=== PATIENT | female | born 1935 | race Caucasian/White ===

== ENCOUNTER 2017-07-04 23:20 | Emergency (ER) | payer MEDICARE, MEDICAID ==
[2017-07-05 00:19] LABS: BASOPHILS 0.4 % (0-2); EOSINOPHILS 6.8 % (0-7); HEMOGLOBIN 12.9 g/dL (12-16); IMMATURE GRANULOCYTES 0.4 % (0-5); LYMPHOCYTES 21.4 % (15-50); MCH 30.9 pg (26.0-34.0); MCHC 33.1 g/dL (31.0-37.0); MCV 93.5 fL (80.0-100.0); MONOCYTES 12.3 % (2-11); NEUTROPHILS 58.7 % (40-80); PLATELET COUNT 206 10x3/uL (130-400); RBC 4.17 10x6/uL (4.00-5.40); RDW 13.9 % (11.5-14.5); WBC 8.2 10x3/uL (4.8-10.8)
[2017-07-05 01:08] LABS: ALBUMIN 3.1 g/dL (3.4-5.0); ANION GAP 17.8 mmol/L (8-16); BILIRUBIN - TOTAL 0.2 mg/dL (0.2-1.3); CARBON DIOXIDE 20.2 mmol/L (21.0-32.0)
== END 2017-07-05 02:00 | disposition home or self-care (01) ==
LOC: D.ER 23:20
PROVIDERS: Emergency Medicine
DX: I10 Essential (primary) hypertension (principal); G20 Parkinson's disease; F17.200 Nicotine dependence, unspecified, uncomplicated

== ENCOUNTER 2017-09-12 09:22 | Emergency (ER) | payer MEDICARE, MEDICAID | END 2017-09-12 11:29 | disposition home or self-care (01) | LOC: D.ER 09:22 | DX: R51 Headache (principal); H92.02 Otalgia, left ear; I10 Essential (primary) hypertension; G20 Parkinson's disease ==

== ENCOUNTER 2017-11-16 21:00 | Inpatient (IN) | payer MEDICARE, MEDICAID ==
[~2017-11-16] VITALS: Ht 157.5 cm; Wt 68.4 kg
[2017-11-16 22:43] LABS: BASOPHILS 0.5 % (0-2); EOSINOPHILS 5.7 % (0-7); HEMATOCRIT 34.3 % (36.0-48.0); HEMOGLOBIN 11.1 g/dL (12-16); LYMPHOCYTES 26.8 % (15-50); MCH 30.8 pg (26.0-34.0); MCHC 32.4 g/dL (31.0-37.0); MCV 95.3 fL (80.0-100.0); PLATELET COUNT 167 10x3/uL (130-400); RDW 14.9 % (11.5-14.5); WBC 6.5 10x3/uL (4.8-10.8)
[2017-11-16 22:45] LABS: APPEARANCE HAZY (CLEAR); BILIRUBIN NEGATIVE (NEGATIVE); COLOR YELLOW (YELLOW); GLUCOSE NEGATIVE (NEGATIVE); KETONE SMALL mg/dL (NEGATIVE); NITRITE NEGATIVE (NEGATIVE); PROTEIN NEGATIVE (NEGATIVE); SPECIFIC GRAVITY 1.015 (1.005-1.020); UROBILINOGEN NORMAL (NORMAL)
[2017-11-16 22:46] LABS: BACTERIA FEW /hpf (NONE SEEN); EPITHELIAL CELLS RARE /hpf (0-5); RED CELLS - URINE RARE /hpf (0-5)
[2017-11-16 23:03] LABS: ALBUMIN 3.2 g/dL (3.4-5.0); ALKALINE PHOSPHATASE 198 U/L (46-116); ALT (SGPT) 10 U/L (10-68); BILIRUBIN - TOTAL 0.32 mg/dL (0.2-1.3); CALC OSMOLALITY 294 mosm/kg (275-300); CALCIUM 8.5 mg/dL (8.5-10.1); CARBON DIOXIDE 18.8 mmol/L (21.0-32.0); CHLORIDE - SERUM 111 mmol/L (98-107); CREATININE - SERUM 3.3 mg/dL (0.6-1.3); GLUCOSE 93 mg/dL (74-106); PROTEIN - SERUM 6.9 g/dL (6.4-8.2); SODIUM 144 mmol/L (136-145); UREA NITROGEN 36 mg/dL (7-18); eGFR NON AFRICAN AMERICAN 14 mL/min (90-120)
[2017-11-16 23:17] LABS: CKMB 0.5 U/L (0.0-3.6); CREATINE KINASE 36 UL (21-215)
[2017-11-16 23:21] LABS: TROPONIN-I < 0.017 ng/mL (0.000-0.060)
[2017-11-17 06:25] LABS: ANION GAP 14.1 mmol/L (8-16); CALCIUM 8.8 mg/dL (8.5-10.1); CARBON DIOXIDE 17.9 mmol/L (21.0-32.0); CREATININE - SERUM 3.1 mg/dL (0.6-1.3); MAGNESIUM - SERUM 2.1 mg/dL (1.8-2.4); PHOSPHOROUS 4.2 mg/dL (2.5-4.9)
[2017-11-17 06:32] LABS: BASOPHILS 0.3 % (0-2); EOSINOPHILS 7.2 % (0-7); HEMATOCRIT 35.5 % (36.0-48.0); HEMOGLOBIN 11.5 g/dL (12-16); IMMATURE GRANULOCYTES 0.3 % (0-5); LYMPHOCYTES 24.4 % (15-50); MCH 30.7 pg (26.0-34.0); MCHC 32.4 g/dL (31.0-37.0); MCV 94.7 fL (80.0-100.0); MEAN PLATELET VOLUME 10.9 fL (7.4-10.4); MONOCYTES 10.4 % (2-11); NEUTROPHILS 57.4 % (40-80); PLATELET COUNT 165 10x3/uL (130-400); RBC 3.75 10x6/uL (4.00-5.40); RDW 14.8 % (11.5-14.5); WBC 6.9 10x3/uL (4.8-10.8)
[2017-11-17] MEDS ORDERED: ZOCOR40 MG PO (10:39)
[2017-11-17] MEDS ORDERED: PLAVIX75 MG PO (10:40)
[2017-11-17] MEDS ORDERED: SINEMET 25-1001 EACH PO (10:41)
[2017-11-17] MEDS ORDERED: ATIVAN2 MG PO (10:42)
[2017-11-17] MEDS ORDERED: NORVASC10 MG PO (10:43)
[2017-11-17] MEDS ORDERED: BYSTOLIC5 MG PO (10:43)
[2017-11-17] MEDS ORDERED: AZILECT0.5 MG PO (10:44)
[2017-11-17] MEDS ORDERED: ACETAMINOPHEN325 MG PO (10:45)
[2017-11-17 11:28] VITALS: BP 175/61
[2017-11-17 12:49] VITALS: BP 170/61; BMI 211.3
[2017-11-17 15:45] VITALS: BP 144/55
[2017-11-17 15:55] LABS: ERYTHROCYTE SEDIMENTATION RATE 18 mm/hr (0-30)
[2017-11-17 19:00] VITALS: BP 152/52
[2017-11-17 20:53] LABS: CREATININE - URINE 74.8 mg/dL (30-125); PRO/CRE RATIO URINE 0.4 mg/g; PROTEIN - URINE 27.8 mg/dL (0.0-11.9)
[2017-11-17 21:16] LABS: APPEARANCE CLEAR (CLEAR); BACTERIA FEW /hpf (NONE SEEN); BILIRUBIN NEGATIVE (NEGATIVE); COLOR YELLOW (YELLOW); GLUCOSE NEGATIVE (NEGATIVE); KETONE NEGATIVE (NEGATIVE); NITRITE NEGATIVE (NEGATIVE); PROTEIN NEGATIVE (NEGATIVE); RED CELLS - URINE OCC /hpf (0-5); SPECIFIC GRAVITY 1.015 (1.005-1.020); UROBILINOGEN NORMAL (NORMAL); WHITE CELLS - URINE 0-5 /hpf (0-5)
[2017-11-18] VITALS: BP 175/53
[2017-11-18 04:00] VITALS: BP 149/44
[2017-11-18 06:44] LABS: BASOPHILS 0.3 % (0-2); EOSINOPHILS 5.1 % (0-7); HEMATOCRIT 33.4 % (36.0-48.0); LYMPHOCYTES 22.3 % (15-50); MCH 30.4 pg (26.0-34.0); MCHC 32.9 g/dL (31.0-37.0); MEAN PLATELET VOLUME 10.8 fL (7.4-10.4); MONOCYTES 10.7 % (2-11); NEUTROPHILS 61.6 % (40-80); PLATELET COUNT 160 10x3/uL (130-400); RBC 3.62 10x6/uL (4.00-5.40); RDW 14.5 % (11.5-14.5); WBC 6.3 10x3/uL (4.8-10.8)
[2017-11-18 06:47] LABS: MCV 92.3 fL (80.0-100.0)
[2017-11-18 07:09] LABS: ALBUMIN 2.9 g/dL (3.4-5.0); ANION GAP 12.3 mmol/L (8-16); BILIRUBIN - TOTAL 0.5 mg/dL (0.2-1.3); CALCIUM 8.5 mg/dL (8.5-10.1); CARBON DIOXIDE 21.3 mmol/L (21.0-32.0); CREATININE - SERUM 2.9 mg/dL (0.6-1.3); POTASSIUM - SERUM 3.6 mmol/L (3.5-5.1); PROTEIN - SERUM 6.5 g/dL (6.4-8.2)
[2017-11-18 08:21] VITALS: BP 112/58
[2017-11-18 13:08] VITALS: Ht 157.5 cm; Wt 68.4 kg
[2017-11-18 13:17] LABS: SPE - A/G RATIO 1.2 (0.7-1.7); SPE - ALBUMIN 3.5 g/dL (2.9-4.4); SPE - ALPHA-1 GLOBULIN 0.3 g/dL (0.0-0.4); SPE - ALPHA-2 GLOBULIN 0.9 g/dL (0.4-1.0); SPE - BETA GLOBULIN 0.9 g/dL (0.7-1.3); SPE - GAMMA GLOBULIN 0.9 g/dL (0.4-1.8); SPE - M-SPIKE Not Observed g/dL (Not Observed); SPE - TOTAL PROTEIN 6.5 g/dL (6.0-8.5)
[2017-11-18 13:51] VITALS: BP 158/56
[2017-11-18 17:01] VITALS: BP 173/61
[2017-11-18 20:00] VITALS: BP 153/53
[2017-11-19] VITALS: BP 153/46
[2017-11-19 04:00] VITALS: BP 154/47
[2017-11-19 05:55] LABS: BASOPHILS 0.5 % (0-2); EOSINOPHILS 6.3 % (0-7); HEMATOCRIT 33.4 % (36.0-48.0); HEMOGLOBIN 11.1 g/dL (12-16); IMMATURE GRANULOCYTES 0.2 % (0-5); LYMPHOCYTES 21.2 % (15-50); MCH 30.6 pg (26.0-34.0); MCHC 33.2 g/dL (31.0-37.0); MEAN PLATELET VOLUME 10.9 fL (7.4-10.4); MONOCYTES 12.6 % (2-11); NEUTROPHILS 59.2 % (40-80); PLATELET COUNT 159 10x3/uL (130-400); RBC 3.63 10x6/uL (4.00-5.40); RDW 14.4 % (11.5-14.5); WBC 5.9 10x3/uL (4.8-10.8)
[2017-11-19 06:22] LABS: ALBUMIN 2.9 g/dL (3.4-5.0); ANION GAP 13.5 mmol/L (8-16); CALCIUM 8.4 mg/dL (8.5-10.1); CREATININE - SERUM 2.6 mg/dL (0.6-1.3); POTASSIUM - SERUM 3.2 mmol/L (3.5-5.1)
[2017-11-19 06:24] LABS: CARBON DIOXIDE 26.7 mmol/L (21.0-32.0)
[2017-11-19 06:36] LABS: BILIRUBIN - TOTAL 0.63 mg/dL (0.2-1.3); PROTEIN - SERUM 6.4 g/dL (6.4-8.2)
[2017-11-19 10:15] VITALS: BP 163/61
[2017-11-19 12:31] VITALS: BP 161/57
[2017-11-19 14:27] LABS: UPE RAND - ALBUMIN 16.4 % (()); UPE RAND - ALPHA 1 GLOBULIN 9.6 % (()); UPE RAND - ALPHA 2 GLOBULIN 21.5 % (()); UPE RAND - BETA GLOBULIN 6.3 % (()); UPE RAND - GAMMA GLOBULIN 46.3 % (())
[2017-11-22 16:12] LABS: RENIN ACTIVITY - PLASMA <0.167 ng/mL/hr (0.167-5.380)
[2017-11-24 09:10] LABS: ALDOSTERONE <1.0 ng/dL (0.0-30.0)
== END 2017-11-19 14:57 | disposition home or self-care (01) | DRG 683 ==
LOC: D.ER 21:00 → OBSVTIME 11-17 03:11 → D.EDHOLD 11-17 03:11 → D.M2 11-17 07:52
PROVIDERS: Family Medicine; Internal Medicine Nephrology
DX: N17.9 Acute kidney failure, unspecified (principal); F17.203 Nicotine dependence unspecified, with withdrawal; I16.0 Hypertensive urgency; I12.9 Hypertensive chronic kidney disease with stage 1 through stage 4 chronic kidney disease, or unspecified chronic kidney disease; N18.4 Chronic kidney disease, stage 4 (severe); I25.10 Atherosclerotic heart disease of native coronary artery without angina pectoris; G20 Parkinson's disease; E78.5 Hyperlipidemia, unspecified; K21.9 Gastro-esophageal reflux disease without esophagitis; F41.8 Other specified anxiety disorders; Z86.73 Personal history of transient ischemic attack (TIA), and cerebral infarction without residual deficits

== ENCOUNTER 2017-11-22 18:26 | Emergency (ER) | payer MEDICARE ==
[2017-11-18 13:08] VITALS: BMI 29.4
[~2017-11-22 18:26] MED LIST: ACETAMINOPHEN325 MG PO; ATIVAN2 MG PO; AZILECT0.5 MG PO; BYSTOLIC5 MG PO; NORVASC10 MG PO; PLAVIX75 MG PO; SINEMET 25-1001 EACH PO; ZOCOR40 MG PO
[2017-11-22 19:03] LABS: APPEARANCE CLEAR (CLEAR); BILIRUBIN NEGATIVE (NEGATIVE); COLOR YELLOW (YELLOW); GLUCOSE NEGATIVE (NEGATIVE); KETONE NEGATIVE (NEGATIVE); NITRITE NEGATIVE (NEGATIVE); PROTEIN TRACE mg/dL (NEGATIVE); SPECIFIC GRAVITY 1.005 (1.005-1.020); UROBILINOGEN NORMAL (NORMAL)
[2017-11-22 19:05] LABS: RED CELLS - URINE 0-5 /hpf (0-5); WHITE CELLS - URINE 0-5 /hpf (0-5)
[2017-11-22 19:06] LABS: BACTERIA MANY /hpf (NONE SEEN)
[2017-11-22 20:02] LABS: BASOPHILS 0.2 % (0-2); EOSINOPHILS 5.6 % (0-7); HEMATOCRIT 33.3 % (36.0-48.0); HEMOGLOBIN 10.9 g/dL (12-16); IMMATURE GRANULOCYTES 0.2 % (0-5); LYMPHOCYTES 24.2 % (15-50); MCH 30.8 pg (26.0-34.0); MCHC 32.7 g/dL (31.0-37.0); MCV 94.1 fL (80.0-100.0); MEAN PLATELET VOLUME 10.6 fL (7.4-10.4); MONOCYTES 9.6 % (2-11); NEUTROPHILS 60.2 % (40-80); PLATELET COUNT 144 10x3/uL (130-400); RBC 3.54 10x6/uL (4.00-5.40); RDW 13.9 % (11.5-14.5); WBC 5.9 10x3/uL (4.8-10.8)
[2017-11-22 20:30] LABS: ALBUMIN 3.5 g/dL (3.4-5.0); ANION GAP 17.1 mmol/L (8-16); BILIRUBIN - TOTAL 0.41 mg/dL (0.2-1.3); CALCIUM 8.6 mg/dL (8.5-10.1); CARBON DIOXIDE 22.4 mmol/L (21.0-32.0); CREATININE - SERUM 2.8 mg/dL (0.6-1.3); POTASSIUM - SERUM 3.5 mmol/L (3.5-5.1)
== END 2017-11-22 20:52 | disposition home or self-care (01) ==
LOC: D.ER 18:26
PROVIDERS: Emergency Medicine; Physician Assistant Medical
DX: N39.0 Urinary tract infection, site not specified (principal); R33.9 Retention of urine, unspecified; I10 Essential (primary) hypertension; F17.200 Nicotine dependence, unspecified, uncomplicated; I12.9 Hypertensive chronic kidney disease with stage 1 through stage 4 chronic kidney disease, or unspecified chronic kidney disease; N18.9 Chronic kidney disease, unspecified; G20 Parkinson's disease